=== PATIENT | female | born 1995 | race Caucasian/White ===

== ENCOUNTER 2017-10-18 21:03 | Emergency (ER) | payer OTHER ==
[~2017-10-18] VITALS: Ht 162.6 cm; Wt 65.8 kg
[2017-10-18] MEDS ORDERED: OMEPRAZOLE20 MG PO (23:31)
== END 2017-10-18 23:37 | disposition home or self-care (01) ==
LOC: ED 21:03
DX: K30 Functional dyspepsia (principal); F17.200 Nicotine dependence, unspecified, uncomplicated; Z91.040 Latex allergy status; Z88.8 Allergy status to other drugs, medicaments and biological substances
CPT/HCPCS: 76705; 80053; 81001; 83690; 84703; 85025; 96361; 96374; 99284; J7030

== ENCOUNTER 2018-05-11 08:20 | Emergency (ER) | payer OTHER ==
[~2018-05-11] VITALS: Ht 162.6 cm; Wt 65.8 kg
[~2018-05-11 08:20] MED LIST: OMEPRAZOLE20 MG PO
[2018-05-11] MEDS ORDERED: ZOFRAN ODT4 MG PO (09:49)
== END 2018-05-11 10:28 | disposition home or self-care (01) ==
LOC: ED 08:20
DX: R11.10 Vomiting, unspecified (principal); Z91.040 Latex allergy status; Z91.048 Other nonmedicinal substance allergy status
CPT/HCPCS: 80053; 81001; 84703; 85025; 96361; 96374; 96376; 99283; J2405; J7030

== ENCOUNTER 2019-05-08 23:00 | Emergency (ER) | payer OTHER ==
[~2019-05-08 23:00] MED LIST changes: +ZOFRAN ODT4 MG PO
--- OUTSIDE RECORDS SUMMARY | 2019-05-08 23:02 | XMS ---
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 Details: [facility] CRITERIA MET - Group Notification CARE PROVIDERS KATH ROMANO Physician Java Developer 09/27/2018-Current PHONE: [phone] CHELLE MORENO Primary Care Current PHONE: Unknown FERNANDO MALIK Primary Care Current PHONE: Unknown Rosanna has no Care Guidelines for this patient. E.D. VISIT COUNT (12 MO.) 4 [facility] TOTAL 4 NOTE: Visits indicate total known visits. ED/UCC VISIT TRACKING (12 MO.) 05/08/2019 23:00 [facility] TYPE: Emergency COMPLAINT: - POSS UTI, URINE PROBLEM 09/26/2018 23:08 [facility] TYPE: Emergency COMPLAINT: - VOMITING,DIARRHEA DIAGNOSES: - Latex allergy status - Other nonmedicinal substance allergy status - Anxiety disorder, unspecified - Nausea with vomiting, unspecified - Noninfective gastroenteritis and colitis, unspecified 08/20/2018 12:23 [facility] TYPE: Emergency COMPLAINT: - POSS UTI/RASH DIAGNOSES: - Procedure and treatment not carried out due to patient leaving prior to being seen by health care provider 05/11/2018 08:21 [facility] TYPE: Emergency COMPLAINT: - VOMITING BLOOD DIAGNOSES: - Vomiting, unspecified - Latex allergy status - Other nonmedicinal substance allergy status INPATIENT VISIT TRACKING (12 MO.) No inpatient visits to display in this time frame [email or web address]
== END 2019-05-08 23:22 | disposition left against medical advice (07) ==
LOC: ED 23:00
DX: N39.9 Disorder of urinary system, unspecified (principal); Z53.21 Procedure and treatment not carried out due to patient leaving prior to being seen by health care provider

== ENCOUNTER 2019-11-03 00:09 | Emergency (ER) | payer OTHER ==
[~2019-11-03] VITALS: Ht 165.1 cm; Wt 68.0 kg
[~2019-11-03 00:09] MED LIST changes: +CRUTCH1 EACH MISC; +GABAPENTIN300 MG PO; +NORCO 5-325 TA1 EACH PO
--- OUTSIDE RECORDS SUMMARY | 2019-11-03 00:12 | XMS ---
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 TOMER MARQUEZ. Elopement at [facility] 08/20/2018 12:23 - Patient eloped before treatment completed. Details: [facility] CRITERIA MET - Group Notification - [facility] Guidelines CARE PROVIDERS BLANK GONZALEZ Legal Medicine 05/12/2019-[facility] PHONE: [phone] KATH ROMANO Physician Reed Dipper 09/27/2018-Current PHONE: [phone] CHELLE MORENO Primary Care Current PHONE: Unknown FERNANDO MALIK Primary Care Current PHONE: Unknown Rosanna has no Care Guidelines for this patient. Care History Medical/Surgical 06/04/2019 [facility] - PATIENT DOES NOT HAVE A PCP- [facility] CALLED PATIENT 2X, LEFT A VOICEMAIL. - NO PCP LETTER WAS SENT TO PATIENT ON 05/26/19. - PLEASE REFER PATIENT TO THE WALK IN CLINIC- TO ESTABLISH CARE. Carey VISIT COUNT (12 MO.) [address] [place] [address]. TOTAL 4 NOTE: Visits indicate total known visits. ED/UCC VISIT TRACKING (12 MO.) 11/03/2019 00:10 [facility] TYPE: Emergency COMPLAINT: - VOMITING,DIAHREA 06/02/2019 23:24 [facility] TYPE: Emergency COMPLAINT: - RIGHT ANKLE INJURY DIAGNOSES: - Other nonmedicinal substance allergy status - Disp fx of 5th metatarsal bone, r ft, 7thD - Pain in right foot - Latex allergy status 05/23/2019 22:04 [facility] TYPE: Emergency COMPLAINT: - RIGHT ANKLE PAIN/INJURY DIAGNOSES: - Unspecified injury of right foot, initial encounter - Disp fx of fifth metatarsal bone, right foot, init - Slipping, tripping and stumbling w/o falling, unsp, init - Other nonmedicinal substance allergy status - Latex allergy status 05/08/2019 23:00 [facility] TYPE: Emergency COMPLAINT: - POSS UTI, URINE PROBLEM DIAGNOSES: - Proc/trtmt not crd out d/t pt lv bef seen by [facility] - Disorder of urinary system, unspecified INPATIENT VISIT TRACKING (12 MO.) No inpatient visits to display in this time frame [id number]
[2019-11-03] MEDS ORDERED: ZOFRAN4 MG PO (02:36)
== END 2019-11-03 02:53 | disposition home or self-care (01) ==
LOC: ED 00:09
DX: K52.9 Noninfective gastroenteritis and colitis, unspecified (principal); F41.9 Anxiety disorder, unspecified; Z91.040 Latex allergy status; Z88.8 Allergy status to other drugs, medicaments and biological substances
CPT/HCPCS: 80053; 81001; 83690; 83735; 84703; 85025; 96361; 96374; 96376; 99284-25; J2405; J7030